=== PATIENT | male | born 1990 | race Hispanic/Latino ===

== ENCOUNTER 2017-05-07 17:17 | Emergency (ER) | payer OTHER ==
[~2017-05-07] VITALS: Ht 182.9 cm; Wt 111.4 kg
[2017-05-07 17:20] VITALS: BP 123/88; PULSE 92; RESP 18; O2SAT 99
--- NOTE | 2017-05-07 18:32 | ED.REPORT ---
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 rehab on 03/18/2017 released 04/11/2017. keeps hearing voices. unable to concretrate at work. on no medication appointment 05/20/2017 for the beginning part at [facility]. Also [facility] appointment that day. works in [employer]. 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" Nursing Notes Stated Complaint: MENTAL HEALTH EVAL Chief Complaint: Psychiatric Complaint Nursing Notes Reviewed: Yes Allergies: Coded Allergies: No Known Allergies (Verified , 05/15/05) General Time Seen by MD: 18:31 Chief Complaint Hallucinations, auditory Hx Obtained From: Patient, Spouse Risk-Psychiatric Illness Suicide Risk Stratification Suicide Risk Factors - Adult: : Alcohol use (2 beers a week): Family Hx of Suicide: Prior psych admission: Substance abuseNo: Access to firearms, Close associate suicide, Previous attempt RF Statements: Risk factors reviewed Past Medical History Past Medical History Denies: Asthma, Bleeding disorder, Diabetes mellitus Past Surgical History denies Smoking History Former Smoker (quit 1 week ago) Social History denies at this time 05/07/2017 Alcohol Use: 1-3 per week Drug Use: Meth Other Social History: Occupation lives with Mom in law. 05/07/2017 Review of Systems Basic Review of Systems Eyes: Vision NL, No discharge Hematologic: No bleeding, No bruising Allergy / Immune: No allergy Physical Exam Initial Vital Signs Vital Signs (First) Date Time Temp Pulse Resp B/P Pulse Ox O2 Delivery O2 Flow Rate FiO2 05/07/17 17:20 36.7 92 18 123/88 99 Room Air Initial VS: Reviewed, Vital signs normal Head / Eyes: Atraumatic, Normocephalic, PERRL ENT: Mucous membranes moist, Conjunctiva normal, No scleral icterus Neck: Supple, Non-tender, Full range of motion Respiratory: Breath sounds normal, Clear to auscultation, No respiratory distress Cardiovascular: Regular rate & rhythm, Heart sounds normal, Intact distal pulses Abdomen / GI: Soft, Non-tender, No guarding, No rebound, No distention Back: No CVA tenderness Lymphatic: No lymphadenopathy Extremities: Vascular intact, Neuro intact, No swelling, No tenderness Skin: Warm, Dry, No cyanosis General/Constitutional: Awake, Alert, No acute distress, Well appearing, Well developed, Well hydrated Neurologic: Oriented X3, Speech NL, No motor deficits, No sensory deficits, CN II - XII intact, Reflexes equal bilat, Cerebellar NL, Memory NL, Gait NL Psychiatric: Affect NL, Mood NL, Not suicidal, Not homicidal, Cognitive function NL, Judgment/insight NL, Thought content NL Respiratory / Chest: Atraumatic, Breath sounds NL, Breath sounds = bilat, No respiratory distress Cardiovascular: Heart rate NL, Regular rhythm, Heart sounds NL, No gallop Abdomen: Atraumatic, Soft, Non-tender Interpretation & Diagnostics Lab Results Interpretation Test 05/07/17 18:51 Hold Urine Received (Received) Re-Eval/Medical Decision Med Decision/Clinical Course 26 year old male presents with and brother. Patient has a 2 year hx of meth use with 52 days clean. He is working in the [employer] industry and is having auditory hallulcunations. He is denies any self harm or harm to others. He has a supportive environment, his . He is living with his 's mom. He has made all the appointments that he needs. No sign of personality disorder Discharge & Departure Impression: Primary Impression: Auditory hallucinations Disposition: Home Patient Instructions: Hallucinations (ED), Nonpsychiatric Hallucinations (ED), Psychiatric Hallucinations (ED) Additional Instructions: It may be that the voices will fade with time. As you are not thinking of harming yourself or others, and you have a safe and supportive environment to go to, you can go home. The voices are not command, where they tell you to harm yourself, it sounds likelthey are making fun of you. You and your need to write some positive affirmations and postive them in big letters around yoour bathroom, bedroom and living room. You need to read the words and say them out loud every time you see them. Please keep all the appointment that you have scheduled. Start haldol 1 mg in the am and pm. The prescription will be for 90 days. Use cogentin 1 mg in the am and pm. this is to prevent unwanted tics or movements. As this can make you sleepy, start the medication at night only for 3 days then add the morning dose. [place]!!! Referrals: [facility] (PCP) [facility] EDSupervising Provider for APC: Rigo Boyce DO copies to: [facility] Res[facility] ; [facility] Zulma Poole May 07, 2017 18:32
== END 2017-05-07 20:00 | disposition home or self-care (01) ==
LOC: SED 17:17
DX: R44.0 Auditory hallucinations (principal); Z87.891 Personal history of nicotine dependence